=== PATIENT | female | born 1950 | race Caucasian/White ===

== ENCOUNTER 2022-11-01 10:04 | Inpatient (IN) | payer MEDICARE ==
[~2022-11-01] VITALS: Ht 157.5 cm; Wt 49.0 kg
[2022-11-01] MEDS ORDERED: ONDANSETRON 4MG ODT PO STA (11:20)
[2022-11-01 11:55] LABS: BASOPHILS % 0.3 % (0.0-2.0); HEMATOCRIT. 43.2 % (36.0-48.0); HEMOGLOBIN. 14.8 g/dL (12.0-16.0); LYMPHOCYTES % 10.5 % (20.0-50.0); MEAN CORPUSCULAR HEMOGLOBIN 31.3 pg (28.0-32.0); MEAN CORPUSCULAR VOLUME 91.5 fL (81.0-99.0); MEAN PLATELET VOLUME 7.7 fl (7.4-10.4); MONOCYTES % 3.5 % (2.0-8.0); NEUTROPHILS % 85.7 % (40.0-76.0); PLATELET 282 x1000/uL (130-400); RED BLOOD CELL COUNT 4.72 mill/uL (4.2-5.4); RED CELL DISTRIBUTION WIDTH 13.4 % (11.6-14.6)
[2022-11-01 12:04] LABS: PROTHROMBIN TIME 10.7 sec (9.6-11.0)
[2022-11-01 12:08] LABS: CHLORIDE 95 mEq/L (98-107)
[2022-11-01] MEDS ORDERED: MORPHINE SULFATE 4 MG/ML CPJ (NOT FOR IM USE) IV STA (13:12)
[2022-11-01] MEDS ORDERED: ONDANSETRON HCL 4MG/2ML INJ IV STA (13:12)
[2022-11-01] MEDS ORDERED: SODIUM CHLORIDE 0.9% 1,000 ML IV ONE (13:15)
[2022-11-01] MEDS ORDERED: ACETAMINOPHEN 325MG TABLET PO ONE (14:45)
[2022-11-01] MEDS ORDERED: IOHEXOL-350 100 ML BOTTLE ONE (21:44)
[2022-11-02 06:06] LABS: CLARITY URINE CLEAR (CLEAR); COLOR URINE YELLOW (YELLOW); KETONES URINE NEGATIVE (NEGATIVE); LEUKOCYTE ESTERASE URINE TRACE (NEGATIVE); NITRITE URINE NEGATIVE (NEGATIVE); OCCULT BLOOD URINE TRACE (NEGATIVE); PH URINE 5.5 (4.5-8.0); PROTEIN URINE 2+ (NEGATIVE); UROBILINOGEN URINE 0.2 E.U./dL (0.2-1.0)
[2022-11-02] MEDS ORDERED: ACETAMINOPHEN 325MG TABLET PO PRN (10:30)
[2022-11-02] MEDS ORDERED: ONDANSETRON HCL 4MG/2ML INJ IV PRN (10:30)
[2022-11-02] MEDS ORDERED: LABETALOL 5MG/ML SYR 20 MG/4 ML SYRINGE IV PRN (11:00)
[2022-11-02] MEDS ORDERED: HYDRALAZINE 20MG/ML VIAL IV PRN (11:00)
[2022-11-02] MEDS: CARVEDILOL 6.25 MG TABLET PO SCH ×2 (11:16→21:07)
[2022-11-02] MEDS: HYDRALAZINE HCL 50MG TABLET PO SCH ×2 (14:36→22:00)
[2022-11-02] MEDS: LORAZEPAM 2MG/ML CPJ IV PRN (16:38)
[2022-11-02] MEDS ORDERED: LORAZEPAM 2MG/ML CPJ IM ONE (23:15)
[2022-11-03] VITALS (7 sets, daily range): BP systolic 100–172; BP diastolic 52–87
[2022-11-03] MEDS ORDERED: HALOPERIDOL LACTATE 5MG/ML VIAL IM ONE
[2022-11-03] MEDS: HYDRALAZINE HCL 50MG TABLET PO SCH ×3 (06:29→21:57)
[2022-11-03] MEDS: CARVEDILOL 6.25 MG TABLET PO SCH ×2 (11:16→21:57)
[2022-11-04] VITALS (7 sets, daily range): BP systolic 100–139; BP diastolic 52–70
[2022-11-04] MEDS: HYDRALAZINE HCL 50MG TABLET PO SCH ×3 (06:00→21:17)
[2022-11-04] MEDS: CARVEDILOL 6.25 MG TABLET PO SCH ×2 (09:00→21:17)
[2022-11-04] MEDS ORDERED: CEFTRIAXONE 1 G PREMIX 50 ML IV SCH (10:45)
[2022-11-04] MEDS: CEFTRIAXONE 1,000 MG in DEXTROSE 5% WATER 50 ML IV SCH (12:51)
[2022-11-05] VITALS: BP 95/77
[2022-11-05 04:00] VITALS: BP 100/51
[2022-11-05] MEDS: HYDRALAZINE HCL 50MG TABLET PO SCH ×3 (05:05→20:35)
[2022-11-05 08:00] VITALS: BP_SYST 121; BP_SYST 127; BP_SYST 145; BP_SYST 177; BP_DIAS 69; BP_DIAS 76; BP_DIAS 77
[2022-11-05] MEDS: CARVEDILOL 6.25 MG TABLET PO SCH ×2 (10:13→20:34)
[2022-11-05 12:00] VITALS: BP 137/83
[2022-11-05] MEDS: CEFTRIAXONE 1,000 MG in DEXTROSE 5% WATER 50 ML IV SCH (12:00)
[2022-11-05] MEDS: QUETIAPINE FUMARATE 50MG TABLET PO SCH (12:05)
[2022-11-05] MEDS: LORAZEPAM 2MG/ML CPJ IV PRN ×2 (12:36→20:35)
[2022-11-05 16:00] VITALS: BP 145/82
[2022-11-05 20:00] VITALS: BP 124/78
[2022-11-06] VITALS: BP 114/71
[2022-11-06 04:00] VITALS: BP 111/64
[2022-11-06] MEDS: HYDRALAZINE HCL 50MG TABLET PO SCH ×3 (06:00→21:14)
[2022-11-06 08:00] VITALS: BP_SYST 134; BP_SYST 145; BP_DIAS 82; BP_DIAS 86
[2022-11-06] MEDS: CARVEDILOL 6.25 MG TABLET PO SCH ×2 (10:01→21:00)
[2022-11-06] MEDS: LORAZEPAM 0.5MG TABLET PO PRN (10:01)
[2022-11-06] MEDS: QUETIAPINE FUMARATE 50MG TABLET PO SCH (10:01)
[2022-11-06 12:00] VITALS: BP 118/68
[2022-11-06] MEDS: CEFTRIAXONE 1,000 MG in DEXTROSE 5% WATER 50 ML IV SCH (12:27)
[2022-11-06 16:00] VITALS: BP 116/74
[2022-11-06 20:00] VITALS: BP 98/56
[2022-11-07] VITALS (8 sets, daily range): BP systolic 93–125; BP diastolic 56–69
[2022-11-07] MEDS: HYDRALAZINE HCL 50MG TABLET PO SCH ×3 (06:23→21:39)
[2022-11-07] MEDS: LORAZEPAM 0.5MG TABLET PO PRN ×2 (09:01→09:28)
[2022-11-07] MEDS: QUETIAPINE FUMARATE 50MG TABLET PO SCH (09:26)
[2022-11-07] MEDS: CARVEDILOL 6.25 MG TABLET PO SCH ×2 (09:27→21:39)
[2022-11-07] MEDS: CEFTRIAXONE 1,000 MG in DEXTROSE 5% WATER 50 ML IV SCH (12:29)
[2022-11-08] VITALS (7 sets, daily range): BP systolic 90–180; BP diastolic 47–96
[2022-11-08] MEDS: HYDRALAZINE HCL 50MG TABLET PO SCH ×3 (05:24→20:40)
[2022-11-08] MEDS: CARVEDILOL 6.25 MG TABLET PO SCH ×2 (08:57→20:40)
[2022-11-08] MEDS: QUETIAPINE FUMARATE 50MG TABLET PO SCH (09:22)
[2022-11-08] MEDS: CEFTRIAXONE 1,000 MG in DEXTROSE 5% WATER 50 ML IV SCH (11:35)
[2022-11-08] MEDS: LORAZEPAM 0.5MG TABLET PO PRN ×2 (16:02→20:41)
== END 2022-11-08 22:20 | disposition short-term general hospital (02) | DRG 281 ==
LOC: ER 10:04 → MICUSO 17:50 → EDBEDREQTM 17:51 → EDBEDREQ 17:51 → EDBEDREQSVC 20:04 → 7WST 11-03 00:17
PROVIDERS: ADMIT Internal Medicine; ATTEND Internal Medicine
DX: I71.43 Infrarenal abdominal aortic aneurysm, without rupture (principal); I21.4 Non-ST elevation (NSTEMI) myocardial infarction; E87.1 Hypo-osmolality and hyponatremia; Z78.1 Physical restraint status; I51.3 Intracardiac thrombosis, not elsewhere classified; Z20.822 Contact with and (suspected) exposure to COVID-19; Z90.710 Acquired absence of both cervix and uterus; Z90.49 Acquired absence of other specified parts of digestive tract
CPT/HCPCS: 36415; 71045; 71275; 74174; 74176; 80053; 81003; 83036; 84484; 85025; 87426; 87804; 93005; 93306; 99285; C1893; C9803; J0360; J0696; J1630; J2060; J2270; J2405; J7030; J7060; Q9967